=== PATIENT | female | born 1990 | race Caucasian/White ===

== ENCOUNTER 2016-07-26 03:33 | Emergency (ER) | payer MEDICAID, OTHER ==
[~2016-07-26] VITALS: Ht 162.6 cm; Wt 69.4 kg
[~2016-07-26 03:33] MED LIST: ACHYD1T PO; CEPH500C PO; CODE-54 PO; DCS100C PO; Hydrocodone Bit/Acetaminophen PO; IBP600T1 PO; IBP800T PO; LANS15CA PO; METR70GE8 VG; PREN1TAB25 PO; PREN1TAB39 PO
--- OUTSIDE RECORDS SUMMARY | 2016-07-26 03:41 | XMS REPORT | Continuity of Care Document ---
Author Author [facility] Organization [facility] Address Unknown Phone Unavailable Care Team Providers Care Traffic Controller Cable Name Role Phone CHIKIS DENNISON DO PP Insurance Providers Payer Name Policy Number Subscriber Name Relationship Self Pay Dilma Martinez 01 Self / Same As Patient Advance Directives Directive Response Recorded Date Advance Directives N 01/22/13 7:05pm Organ Donor Y 01/22/13 7:05pm Problems No Known Problems or Medical conditions. Family History History Response Recorded Date/Time Hx Family Cancer N 09/24/11 7:12pm Hx Family Cardiac Disorders N 09/24/11 7: 12pm Social History History Response Recorded Date/Time Alcohol Use Denies Use 01/22/13 7:05pm Recreational Drug Use N 01/22/13 7:05pm Sexually Transmitted Disease N 01/22/13 7 :47pm Allergies, Adverse Reactions, Alerts Allergen Type Severity Reaction Last Updated No Known Drug Allergies 01/09/09 Medications Medication Dose Units Route Sig Qty Days Metronidazole (Metrogel-Vaginal) 70 Gm VG HS 5 Cephalexin Monohydrate (Cephalexin) 1 Each PO TID 7 Docusate Sodium (Colace) 100 Mg PO BID Ibuprofen (Motrin) 800 Mg PO Q6H Acetaminophen/Hydrocodone Bitart (Lorcet Plus 10/325 Mg) 1 - 2 Tab PO Q3 hrs 28 Vits W-Ca,Fe,Fa(<1MG) () 1 Each PO DAILY Response Recorded Date/Time Status not known Unknown Results Test Date Result Interp. Ref. Range Atypical Lymphocytes October 26, 2009 8:00pm 0 % - Band Neutrophils October 26, 2009 8:00pm 0 % - Basophils # (Auto) September 25, 2011 4:25am 0.0 10^3/uL N 0.0-0.1 Basophils % (Manual) October 26, 2009 8:00pm 0 % - Basophils (%) (Auto) September 25, 2011 4:25am 0 % N 0-10 Eosinophils # (Auto) September 25, 2011 4:25am 0.2 10^3/uL N 0.0-0.3 Eosinophils % (Manual) October 26, 2009 8:00pm 0 % - Eosinophils (%) (Auto) September 25, 2011 4:25am 1 % N 0-10 Hematocrit September 25, 2011 4:25am 33 % L 35-52 Hemoglobin September 25, 2011 4:25am 11.5 G/ DL N 11.5-16.0 Lymphocytes # (Auto) September 25, 2011 4:25am 4.1 X 10^3 H 1.0-4.0 Lymphocytes % (Manual) October 26, 2009 8:00pm 13 % - Lymphocytes (%) (Auto) September 25, 2011 4:25am 27 % N 12-44 Mean Corpuscular Hemoglobin September 25, 2011 4:25am 33 PG N 25-34 Mean Corpuscular Hemoglobin Concent September 25, 2011 4:25am 35 G/DL N 32-36 Mean Corpuscular Volume September 25, 2011 4:25am 95 FL N 80-99 Mean Platelet Volume September 25, 2011 4:25am 11.3 FL H 7.4-10.4 Monocytes # (Auto) September 25, 2011 4:25am 1.0 X 10^3 N 0.0-1.0 Monocytes % (Manual) October 26, 2009 8:00pm 3 % - Monocytes (%) (Auto) September 25, 2011 4:25am 7 % N 0-12 Neutrophils # (Auto) September 25, 2011 4:25am 10.2 X 10^3 H 1.8-7.8 Neutrophils % (Manual) October 26, 2009 8:00pm 78 % - Neutrophils (%) (Auto) September 25, 2011 4:25am 66 % N 42-75 Platelet Count September 25, 2011 4:25am 159 10^3/uL N 130-400 Reactive Lymphocytes October 26, 2009 8:00pm 6 % - Red Blood Count September 25, 2011 4:25am 3.47 10^6/uL L 4.35-5.85 Red Cell Distribution Width September 25, 2011 4:25am 13.4 % N 10.0-14.5 Urine Amorphous Sediment July 05, 2006 4:00pm Few robert urates H - Urine Bacteria September 21, 2011 2:10pm NEGATIVE - Urine Bilirubin September 21, 2011 2:10pm NEGATIVE - Urine Casts September 21, 2011 2:10pm NONE - Urine Clarity September 21, 2011 2:10pm CLEAR - Urine Color September 21, 2011 2:10pm YELLOW - Urine Crystals September 21, 2011 2:10pm NONE - Urine Culture Indicated September 21, 2011 2:10pm NO - Urine Glucose (UA) September 21, 2011 2:10pm NEGATIVE - Urine Ketones September 21, 2011 2:10pm NEGATIVE - Urine Leukocyte Esterase September 21, 2011 2:10pm TRACE H - Urine Mucus September 21, 2011 2:10pm NEGATIVE - Urine Nitrate July 21, 2006 4:39pm Negative - Urine Nitrite September 21, 2011 2:10pm NEGATIVE - Urine Test June 13, 2006 3:18pm Negative - Urine Protein September 21, 2011 2:10pm NEGATIVE - Urine RBC September 21, 2011 2:10pm RARE / HPF - Urine Specific [place] September 21, 2011 2:10pm 1.010 L - Urine Squamous Epithelial Cells September 21, 2011 2:10pm 0-2 - Urine Urobilinogen September 21, 2011 2:10pm NORMAL MG/DL - Urine WBC September 21, 2011 2:10pm 0-2 / HPF - Urine pH September 21, 2011 2:10pm 7.0 - White Blood Count September 25, 2011 4:25am 15.6 10^3/uL H 4.3-11.0 Blood Morphology Comment October 26, 2009 8:00pm OK - Urine RBC (Auto) September 21, 2011 2:10pm NEGATIVE - Procedures Procedure Code Date REPAIR OB LAC RECT/ANUS 75.62 10/27/09 LOW CERVICAL 74.1 09/24/11 INSTRUMENT DELIVERY NOS 72.9 09/24/11 MRSA Screen 09/21/11 Urine Culture 10/26/09 Encounters Encounter Location Date/Time Registered Emergency Room [facility] 01/22/13 7:03pm Discharged Inpatient [facility] 7:08pm Pre-admitted Inpatient [facility] 29/05 Departed Emergency Room [facility] 12 :00am
--- NOTE | 2016-07-26 03:42 | ED EENT ---
History of Present Illness General Stated Complaint: RT SIDE EAR & JAW PAIN Source: patient, family, RN notes reviewed Exam Limitations: no limitations History of Present Illness Time seen by provider: 03:42 Initial Comments Awoke c/ severe (8/10) right ear/jaw pain just SHUT [employer]. Never had anything like this before. No known dental problem. No known fever. Did have ear problems as a child. Nothing makes the pain better or worse. Timing/Duration: abrupt, this evening Severity: severe Location: ear (R), facial Prearrival Treatment: no prearrival treatment Modifying Factors: Improves With Other (nothing) Associated Symptoms: facial pain/swelling (right) Allergies and Home Medications Allergies Coded Allergies: No Known Drug Allergies (Unverified , 01/09/09) Home Medications 1 TAB TAB #50 1-2 TAB PO Q4H PRN PRN pain Prescribed by: CRISTIAN CHAVEZ on 09/02/13907 Cefdinir 300 Mg Capsule #20 300 MG PO BID Prescribed by: GANESH PLAZA on 07/26/16401 Docusate Sodium 100 Mg Cap #30 100 MG PO BID Prescribed by: CRISTIAN CHAVEZ on 09/02/13 0908 Ibuprofen 600 Mg Tab #60 600 MG PO Q6H PRN PRN PAIN Prescribed by: CRISTIAN CHAVEZ on 09/02/13 09 Lansoprazole 15 Mg Capsule.dr 15 MG PO DAILY (Reported) Methylprednisolone 4 Mg Tab.ds.pk #1 4 MG PO UD Prescribed by: GANESH PLAZA on 07/26/16401 Vit#96/Ferrous Fum/Fa 1 Each Tablet 1 TAB PO DAILY (Reported) Tramadol HCl 50 Mg Tablet #20 50-100 MG PO Q6H PRN PRN PAIN Prescribed by: GANESH PLAZA on 07/26/16401 Review of Systems Constitutional: see HPI Ears: See HPI Pain (right) : No All Other Systems Reviewed Negative Unless Noted: Yes (Negative excepted noted.) Past Xuiikmq-Ulcona-Dfptss Hx Patient Social History Recent Foreign Travel: No Contact w/Someone Who Travel: No Immunizations Up To Date Tetanus Booster (TDap): Less than 5yrs Surgeries HX Surgeries: Yes Respiratory Hx Respiratory Disorders: No Cardiovascular Hx Cardiac Disorders: No Neurological Hx Neurological Disorders: No Reproductive System Hx Reproductive Disorders: No Sexually Transmitted Disease: No Female Reproductive Disorders: Denies Genitourinary Hx Genitourinary Disorders: No Gastrointestinal Hx Gastrointestinal Disorders: No Musculoskeletal Hx Musculoskeletal Disorders: No Endocrine Hx Endocrine Disorders: No HEENT HX ENT Disorders: No Psychosocial Hx Psychiatric Problems: No Integumentary HX Skin/Integumentary Disorder: No Blood Transfusions Hx Blood Disorders: No Family Medical History Significant Family History: No Pertinent Family Hx Family Medial History: No Family History of: Abdominal aortic aneurysm Alcoholism Cancer Congenital heart disease Congestive heart failure Dementia Family history: Allergy Family history: Alzheimer's disease Family history: Arthritis Family history: Asthma Family history: Breast disease Family history: Cardiovascular disease Family history: Diabetes mellitus Family history: Gastrointestinal disease Family history: Hypertension Family history: Thyroid disorder History of - anemia History of - respiratory disease Kidney disease Myocardial infarction Prostate cancer Psychotic disorder Seizure disorder Stroke Physical Exam Vital Signs Vital Sign - Last 12Hours 07/26/16 03:40 Temp 97.8 Pulse 91 Resp 20 B/P 129/83 Pulse Ox 98 O2 Delivery Room Air General Appearance: WD/WN moderate distress Eyes: bilateral eye normal inspection Ears: right ear TM bulging, right ear TM dull, right ear TM red Nose: normal inspection Mouth/Throat: normal mouth inspection Neck: non-tender Cardiovascular: regular rate, rhythm Respiratory: no respiratory distress Neurologic/Psychiatric: no motor/sensory deficits alert oriented x 3 Skin: warm/dry Progress/Results/Core Measures Results/Orders My Orders Orders-GANESH PLAZA DO Dexamethasone Pf Injection (Decadron Pf (07/26/16 04:00) Hydrocodone/Apap 5/325 Tablet (Lortab 5 (07/26/16 04:00) Cephalexin Capsule (Keflex Capsule) (07/26/16 04:00) Vital Signs/I&O Departure Impression Impression: Primary Impression: ROM (right otitis media) Additional Impression: Otalgia, right ear Disposition: HOME, SELF-CARE Condition: Stable Departure-Patient Inst. Decision time for Depature: 03:59 Referrals: CRISTIAN CARTER MD Patient Instructions: Ear Infections (Otitis Media) (DC) Scripts Tramadol HCl 50 Mg [id number] Mg PO Q6H PRN PAIN #20 TAB Ref 0 Prov:GANESH PLAZA DO 07/26/16 Methylprednisolone (Medrol)4 Mg Tab.ds.pk4 Mg PO UD ear congestion #1 PKG Ref 0 Prov:GANESH PLAZA DO 07/26/16 Cefdinir 300 Mg [id number] Mg PO BID ear infection #20 CAP Ref 0 Prov:GANESH PLAZA DO 07/26/16 GANESH PLAZA DO Jul 26, 2016 03:42
[2016-07-26] MEDS ORDERED: HYDROcodone/APAP 5 MG/325 MG (LORTAB) TAB PO ONE (04:00)
[2016-07-26] MEDS ORDERED: DEXAMETHASONE PF 10 MG/ML (DECADRON) VIAL IM ONE (04:00)
[2016-07-26] MEDS ORDERED: CEPHALEXIN 250 MG (KEFLEX) CAP PO ONE (04:00)
[2016-07-26] MEDS ORDERED: TRAM50TA2 PO (04:02)
[2016-07-26] MEDS ORDERED: CEFD300C3 PO (04:02)
[2016-07-26] MEDS ORDERED: METH4TAB PO (04:02)
[2016-07-26 04:13] VITALS: BP 129/83
== END 2016-07-26 04:13 | disposition home or self-care (01) ==
LOC: EDUNIT# 03:33 → ER 03:37
DX: H66.91 Otitis media, unspecified, right ear (principal)
CPT/HCPCS: 96372; 99282